=== PATIENT | female | born 1965 | race Caucasian/White ===

== ENCOUNTER → 2021-10-25 13:31 | Outpatient (BNVA) | payer BC, SELFPAY | PROVIDERS: Visit Provider Nurse Practitioner | DX: S81.001A Unspecified open wound, right knee, initial encounter (principal); X58.XXXA Exposure to other specified factors, initial encounter | CPT/HCPCS: 73562 ==

== ENCOUNTER 2025-02-28 13:55 | Outpatient (RCR) | payer BC, SELFPAY | END 2025-03-04 23:59 | disposition home or self-care (01) | LOC: SPT 13:55 | PROVIDERS: Visit Provider Nurse Practitioner | DX: R42 Dizziness and giddiness (principal) | CPT/HCPCS: 97110; 97112; 97140; 97163 ==

== ENCOUNTER 2025-03-23 14:51 | Outpatient (RCR) | payer BC, SELFPAY | END 2025-04-03 23:59 | disposition home or self-care (01) | LOC: SPT 14:51 | PROVIDERS: Visit Provider Nurse Practitioner | DX: R42 Dizziness and giddiness (principal) | CPT/HCPCS: 97110; 97112; 97140 ==

== ENCOUNTER 2025-04-13 11:00 | Outpatient (RCR) | payer OTHER, SELFPAY | END 2025-05-04 23:59 | disposition home or self-care (01) | LOC: SPT 11:00 | PROVIDERS: Visit Provider Nurse Practitioner | DX: R42 Dizziness and giddiness (principal) | CPT/HCPCS: 97110; 97140 ==